=== PATIENT | female | born 1955 | race Caucasian/White ===

== ENCOUNTER 2022-08-22 19:43 | Outpatient (CLI) | payer MEDICAID | END 2022-08-22 19:44 | disposition EMS.NT | LOC: EMS 19:43 | DX: S99.912A Unspecified injury of left ankle, initial encounter (principal); W18.30XA Fall on same level, unspecified, initial encounter; Y92.254 Theater (live) as the place of occurrence of the external cause ==

== ENCOUNTER 2022-08-22 20:57 | Emergency (ER) | payer MEDICAID ==
--- NOTE | 2022-08-22 21:36 | ED Physician Documentation ---
PD HPI LOWER EXT INJURY - Stated complaint Stated Complaint: ANKLE PAIN - Chief complaint Chief Complaint: Trauma Ext - History obtained from History obtained from: Patient - History of Present Illness PD HPI LOW EXT INJURY LOCATION: Left, Ankle Type of injury: Fall Where injury occurred: Home - Additional information Additional information: Patient is a 66-year-old female presenting for evaluation of a left ankle pain at after injury this evening. Patient was walking on steps and missed stepped and fell 2 steps while rolling her left ankle. She did not hit her head or lose consciousness. She denies injuries elsewhere. Denies previous injuries to the site. Pain is sharp and worse with movements and ambulation. Review of Systems Constitutional: denies: Fever Nose: denies: Congestion Cardiac: denies: Chest pain / pressure Respiratory: denies: Dyspnea GI: denies: Abdominal Pain Musculoskeletal: reports: Joint pain. denies: Back pain Neurologic: denies: Headache, Head injury PD PAST MEDICAL HISTORY - Present Medications Home Medications: Ambulatory Orders Medication Instructions Recorded Confirmed Oxycodone HCl/Acetaminophen 1 each PO Q6H PRN #14 tablet 08/22/22 [Percocet 5-325 mg Tablet] - Allergies Allergies/Adverse Reactions: Allergies Allergy/AdvReac Type Severity Reaction Status Date / Time Penicillins Allergy Unknown Verified 08/22/22 21:04 PD ED PE NORMAL - General General: Alert and oriented X 3, No acute distress, Well developed/nourished - HEENT HEENT: Atraumatic, Moist mucous membranes - Neck Neck: Supple, no meningeal sign, No bony TTP, C-Spine cleared by NEXUS criteria - Cardiac Cardiac: RRR, No murmur, Strong equal pulses - Respiratory Respiratory: No respiratory distress, Clear bilaterally - Abdomen Abdomen: Normal bowel sounds, Soft, Non tender, Non distended - Back Back: No spinal TTP - Extremities Extremities: Other (Left ankle tenderness and swelling, pedal pulses intact, no calf tenderness or more proximal lower extremity tenderness) - Neuro Neuro: Alert and oriented X 3, No motor deficit, No sensory deficit, Normal speech Eye Opening: Spontaneous Motor: Obeys Commands Verbal: Oriented GCS Score: 15 Results - Vitals Vitals: Vital Signs - 24 hr 08/22/22 08/22/22 08/22/22 21:04 21:53 21:55 Temperature 36.5 C Heart Rate 71 70 68 Respiratory 16 14 18 Rate Blood Pressure 96/66 131/83 H O2 Saturation 98 100 08/22/22 08/22/22 08/22/22 22:00 22:08 23:11 Temperature Heart Rate 65 68 68 Respiratory 23 14 16 Rate Blood Pressure 120/56 L 112/52 L 106/56 L O2 Saturation 100 100 100 Oxygen O2 Source Room air Procedures - Splint (location) L ankle Splint applied by: Physician, Tech Type of splint: Fiberglass, Posterior, Stirrup Other: Patient tolerated well, No complications, Neurovascular intact, Good alignment, Crutches provided - Reduction Body part reduced: Left, Ankle Fracture or dislocation: Fracture dislocation Anesthesia: Morphine, Other (Propofol) Reduction aftercare: Xray confirms reduction, Alignment improved, Splint applied, Crutches, Patient tolerated well - Procedural sedation Sedation prep: Informed consent, Time out completed, Last meal (1829), PE performed, ASA 2 - mild disease, IV O2 monitor, ET CO2 monitor, RT present Sedation Medications: propofol Mallampati classification: III Patient status during sedation: Alert, Responds to verbal, Vitals remained stable, Maintained airway, Recovered uneventfully Sedation recovery: Back to baseline Time in sedation (Minutes): 10 (Concern IV may have infiltrated and that pt did not received medication as she did not appear to have response to propofol administration) PD MEDICAL DECISION MAKING - ED course Complexity details: reviewed results, re-evaluated patient, d/w patient, d/w family ED course: Patient presenting with left ankle injury. Noted to have fracture dislocation on x-ray. Patient was consented for sedation and reduction. Post reduction films show improved alignment. Patient was at her neurologic baseline and vital signs appeared stable throughout course.Patient counseled on need to follow-up with orthopedic surgeryIn the next week as she may need surgery for her ankle injury.She was able to demonstrate use of crutches and was discharged in stable condition. Departure - Departure Disposition: 01 Home, Self Care Clinical Impression: Closed left ankle fracture Qualifiers: Encounter type: initial encounter Qualified Code(s): S82.892A - Other fracture of left lower leg, initial encounter for closed fracture Dislocation of left ankle joint Qualifiers: Encounter type: initial encounter Qualified Code(s): S93.05XA - Dislocation of left ankle joint, initial encounter Condition: Stable Instructions: ED Dislocated Ankle, ED Fx Ankle General, ED Sedation Procedural Discon Follow-Up: Glenn Mae MD [Provider Admit Priv/Credential] - Prescriptions: Oxycodone HCl/Acetaminophen [Percocet 5-325 mg Tablet] 1 each PO Q6H PRN #14 tablet PRN Reason: pain Comments: You were found to have a fractured and dislocated left ankle. We were able to reduce the dislocation and improve the alignment of the fracture. We have applied a splint and given you crutches. Please do not put weight on the ankle and use the crutches to ambulate. You may need surgery for this fracture. Ple ase follow-up with an orthopedic surgeon in the next week. I have included the name of 1 on [facility] or you may contact your primary care doctor for referral to one in your area. I have sent a prescription for pain medication to [facility] in [place]. I am prescribing a short course of narcotic pain medication for you. These are potentially dangerous and addictive medications that should be used carefully. These medications may constipate you. Take an cegh-iht-lxltfso stool softener (docusate) twice daily with plenty of water while taking these medications. If you go 24 hours without a bowel movement, take ptfj-txq-[id number] miralax, per package instructions. Do not drink or drive while taking these medications. If you received narcotic or sedating medications while in the emergency department, do not drive for 24 hours. Store this medication in a safe, secure place and out of reach of children. It is a violation of federal law to give or sell this medication to another person or to use in a manner other than prescribed. The ED will not refill narcotic prescriptions, including prescriptions lost or stolen. To dispose of unwanted medications: 1. [facility] at [address] in [place] has a medication drop box. They accept prescription medications (in pill form) Thursday through Thursday 9:00 a.m. to 5:00 p.m. 2. The [employer] accepts prescription medications (in pill form only) for disposal year round. Call for more information. 3. Contact the [facility] for the next [facility] sponsored prescription drug collection event. , [phone], or [phone]; Note that many narcotic pain relievers also contain Tylenol/acetaminophen. Please ensure that your total dose of acetaminophen from all sources does not exceed 3 g (3000 mg) per day. Discharge Date/Time: 08/22/22 23:14
[2022-08-22] MEDS ORDERED: ONDANSETRON 4 MG/2 ML VIAL IVP STA (21:37)
[2022-08-22] MEDS ORDERED: PROPOFOL 200 MG/20 ML VIAL IVP STA ×2 (21:37→22:10)
[2022-08-22] MEDS ORDERED: MORPHINE 2 MG/ML CARPUJECT IVP STA (21:37)
--- NOTE | 2022-08-22 21:38 | XRAY Report ---
PROCEDURE: Ankle 3 View LT INDICATIONS: Trauma TECHNIQUE: 3 views of the ankle were acquired. COMPARISON: None. FINDINGS: Bones: There is a fracture of the posterior malleolus of the distal tibia with posterior and lateral subluxation of the tibiotalar joint. There is associated disruption of the ankle mortise. A mildly d isplaced fracture of the distal fibula is demonstrated with extension to the tibiofibular syndesmosis . A small linear calcification medial to the medial malleolus may reflect a small avulsion fragment. Soft tissues: There is extensive periarticular soft tissue swelling. Achilles tendon appears intact. IMPRESSION: 1. Fracture-dislocation of the left ankle involving the posterior and lateral malleoli as described. Reviewed by: Willie Amanda MD on 08/22/2022 9:36 PM PDT Approved by: Willie Amanda MD on 08/22/2022 9:36 PM PDT Station ID: [id number]
[2022-08-22] MEDS ORDERED: PROPOFOL 200 MG/20 ML VIAL IVP ONE (22:10)
[2022-08-22] MEDS ORDERED: oxyCODONE/ACET 5/325 Prepack 4 PO STA (22:11)
--- NOTE | 2022-08-22 22:54 | XRAY Report ---
PROCEDURE: Ankle 2 View LT INDICATIONS: Post reduction TECHNIQUE: 2 views of the ankle were acquired. COMPARISON: X-ray of the left ankle 08/21/2022 FINDINGS: Bones: There is improved alignment status post closed reduction of the previously described fracture- dislocation of the left ankle. In the external splint limits evaluation of fine bony detail. Mildly d isplaced fractures of the posterior and lateral malleoli redemonstrated with decreased displacement c ompared to the prior study. The tibiotalar joint appears congruent. Soft tissues: External splint limits evaluation of the soft tissues. IMPRESSION: 1. Improved alignment status post closed reduction of the previously described fracture-dislocation o f the left ankle. Mildly displaced fractures of the lateral and posterior malleoli are redemonstrated . Reviewed by: Willie Amanda MD on 08/22/2022 10:53 PM PDT Approved by: Willie Amanda MD on 08/22/2022 10:53 PM PDT Station ID: [id number]
[2022-08-22 23:12] VITALS: BP 106/56
== END 2022-08-22 23:14 | disposition home or self-care (01) ==
LOC: ED 20:57
DX: S82.892A Other fracture of left lower leg, initial encounter for closed fracture (principal); W10.9XXA Fall (on) (from) unspecified stairs and steps, initial encounter; Y93.89 Activity, other specified; Y92.009 Unspecified place in unspecified non-institutional (private) residence as the place of occurrence of the external cause
CPT/HCPCS: 27810; 94770; 99152; 99284